=== PATIENT | female | born 1995 | race Caucasian/White ===

== ENCOUNTER 2024-06-08 01:07 | Emergency (ER) | payer MEDICAID ==
[~2024-06-08] VITALS: Ht 165.1 cm; Wt 100.0 kg
[2024-06-08 01:24] VITALS: O2SAT 98
[2024-06-08] MEDS: ONDANSETRON HCL 4MG/2ML INJ IV STA (01:24)
[2024-06-08] MEDS: SODIUM CHLORIDE 0.9% 1,000 ML IV ONE (01:30)
[2024-06-08] MEDS: HALOPERIDOL LACTATE 5MG/ML VIAL IM STA (01:46)
[2024-06-08] MEDS: LORAZEPAM 2MG/ML INJ IM ONE (01:46)
[2024-06-08] MEDS: MIDAZOLAM HCL 2 MG/2 ML VIAL IM ONE (02:00)
[2024-06-08 03:40] LABS: BASOPHILS % 0.4 % (0.0-2.0); EOSINOPHILS % 0.2 % (0.0-5.0); HEMATOCRIT. 41.5 % (36.0-48.0); HEMOGLOBIN. 14.1 g/dL (12.0-16.0); LYMPHOCYTES % 18.1 % (20.0-50.0); MEAN CORPUSCULAR HEMOGLOBIN 29.9 pg (28.0-32.0); MEAN CORPUSCULAR HGB CONC 33.9 g/dL (31.0-37.0); MEAN CORPUSCULAR VOLUME 88.2 fL (81.0-99.0); MEAN PLATELET VOLUME 7.4 fl (7.4-10.4); MONOCYTES % 2.9 % (2.0-8.0); NEUTROPHILS % 78.4 % (40.0-76.0); PLATELET 311 x1000/uL (130-400); RED BLOOD CELL COUNT 4.71 mill/uL (4.2-5.4); RED CELL DISTRIBUTION WIDTH 13.6 % (11.6-14.6)
[2024-06-08] MEDS: ONDANSETRON HCL 4MG/2ML INJ IV NR (03:40)
[2024-06-08 03:50] LABS: INR 0.9; PROTHROMBIN TIME 10.5 sec (9.6-11.0)
[2024-06-08 03:54] LABS: CHLORIDE 108 mEq/L (98-107); POTASSIUM 3.7 mEq/L (3.5-5.1); SODIUM 143 mEq/L (136-145)
[2024-06-08 03:55] LABS: CARBON DIOXIDE 23 mEq/L (21-32)
[2024-06-08 04:00] LABS: CREATININE 0.6 mg/dL (0.6-1.0); GLUCOSE 121 mg/dL (70-105); UREA NITROGEN BLOOD 8 mg/dL (9-23)
[2024-06-08 04:01] LABS: ETHANOL BLOOD 185 mg/dL (<10)
[2024-06-08 04:02] LABS: ACETAMINOPHEN < 2 ug/mL (10-30)
[2024-06-08 04:08] LABS: HCG SCREEN NEGATIVE
[2024-06-08 07:41] VITALS: BP 115/62; PULSE 91; RESP 18; O2SAT 100
== END 2024-06-08 08:30 | disposition home or self-care (01) ==
LOC: ER 01:07
DX: R46.2 Strange and inexplicable behavior (principal); R51.9 Headache, unspecified
CPT/HCPCS: 80048; 80307; 80320; 84703; 85025; 85610; 36415; 80329; 70450; 96372; 96374; 99285; J1630; J2060; J2250; J2405; J7030; Z7610 ×4; G0480